=== PATIENT | female | born 1985 | race Two or more races ===

== ENCOUNTER 2018-07-15 09:02 | Inpatient (IN) | payer OTHER ==
[~2018-07-15] VITALS: Ht 152.4 cm; Wt 76.2 kg
[2018-07-15] MEDS ORDERED: SYNTHROID50 MCG PO (09:55)
[2018-07-15] MEDS ORDERED: PRENATAL 19 TA1 EACH PO (09:55)
[2018-07-15] MEDS ORDERED: ZANTAC150 M3 PO (09:55)
== END 2018-07-17 12:26 | disposition home or self-care (01) | DRG 805 ==
LOC: SURG-SUITE 09:02 → LDR 09:02 → SURG-SUITE 14:12
PROVIDERS: ADMIT Obstetrics & Gynecology
PROC: 10E0XZZ Delivery of Products of Conception, External Approach (ICD-10-PCS; principal; 2018-07-15)
PROC: 0HQ9XZZ Repair Perineum Skin, External Approach (ICD-10-PCS; 2018-07-15)
PROC: 3E033VJ Introduction of Other Hormone into Peripheral Vein, Percutaneous Approach (ICD-10-PCS; 2018-07-15)
PROC: 4A1HX4Z Monitoring of Products of Conception, Cardiac Electrical Activity, External Approach (ICD-10-PCS; 2018-07-15)
DX: O70.0 First degree perineal laceration during delivery (principal); O60.14X0 Preterm labor third trimester with preterm delivery third trimester, not applicable or unspecified; Z37.0 Single live birth; Z3A.36 36 weeks gestation of pregnancy